=== PATIENT | male | born 1995 | race Caucasian/White ===

== ENCOUNTER 2017-11-15 00:14 | Emergency (ER) | payer SELFPAY ==
--- NOTE | 2017-11-15 01:25 | PDOC ---
History of Present Illness - General History Source: Patient, EMS Exam Limitations: No Limitations - History of Present Illness Initial Comments: 11/15/17 01:38 Patient is a 22 year old male with no pmhx who arrives via EMS for alcohol intoxication. As per EMS, the patients father called the police because he found the patient intoxicated. He was brought in to the ED via EMS that did not use any reversal medication such as Narcan. Patient is awake, alert and ambulating. Patient admits to having a few drinks at the bar and notes that his father called the police. Patient denies any head trauma. <Samanta Miller - Last Filed: 11/15/17 01:38> <Latrice Mota - Last Filed: 11/15/17 02:12> - General Stated Complaint: SUBSTANCE ABUSE Time Seen by Provider: 11/15/17 01:01 Past History <Samanta Miller - Last Filed: 11/15/17 01:38> <Latrice Mota - Last Filed: 11/15/17 02:12> - Past Medical History Allergies/Adverse Reactions: Allergies Allergy/AdvReac Type Severity Reaction Status Date / Time No Known Allergies Allergy Verified 11/15/17 01:29 Review of Systems - Review of Systems Able to Perform ROS?: Yes Comments:: 11/15/17 01:39 CONSTITUTIONAL: Absent: fever, no chills, no fatigue EYES: Absent: visual changes ENT: Absent: ear pain, no sore throat CARDIOVASCULAR: Absent: chest pain, no palpitations RESPIRATORY: Absent: cough, no SOB GI: Absent: abdominal pain, no nausea, no vomiting, no constipation, no diarrhea GENITOURINARY: Absent: dysuria, no frequency, no hematuria MUSCULOSKELETAL: Absent: back pain, no arthralgia, no myalgia SKIN: Absent: rash NEURO: Absent: headache <Samanta Miller - Last Filed: 11/15/17 01:38> *Physical Exam - Vital Signs Last Vital Signs Temp Pulse Resp BP Pulse Ox 98.5 F 65 14 140/62 97 11/15/17 01:30 11/15/17 01:30 11/15/17 01:30 11/15/17 01:30 11/15/17 01:30 - Physical Exam Comments: 11/15/17 01:39 GENERAL: Awake, alert. No apparent distress. HEENT: Normocephalic, atraumatic. PERRL, EOM intact. CARDIOVASCULAR: Normal S1, S2. Regular rate and rhythm. PULMONARY: Clear to auscultation bilaterally. ABDOMEN: Soft, non-distended, non-tender. EXTREMITIES: Normal ROM in all four extremities. No gross deformities. SKIN: Warm, dry. No rash NEUROLOGICAL: No focal neurological deficits. <Samanta Miller - Last Filed: 11/15/17 01:38> Medical Decision Making - Medical Decision Making 11/15/17 01:54 22 yo male who admits that he had been drinking alcohol and that he does use xanax,was BIBA after father called the police -pt is alert x 3, ambulating in the ER -he is not suicidal or homicidal -he is not interested in drug detox or rehab -he is not under arrest - I spoke with there mother (who has terminal lung cancer) and the father -the father wants drug screening but I told home that the pt is not under arrest and does not want drug rehab, pt admits to alcohol and drug use -his mother callled a taxi for him and security placed him in the taxi 11/15/17 02:11 <Latrice Mota - Last Filed: 11/15/17 02:12> *DC/Admit/Observation/Transfer - Attestations Scribe Attestion: 11/15/17 01:39 Documentation prepared by HANNAH Monaco, acting as medical diagnostic radiographer for Latrice Mota MD/DO. <Samanta Miller - Last Filed: 11/15/17 01:38> <Latrice Mota - Last Filed: 11/15/17 02:12> Diagnosis at time of Disposition: Substance abuse - Discharge Dispostion Disposition: HOME Condition at time of disposition: Stable - Patient Instructions Printed Discharge Instructions: DI for Drug Abuse and Drug Addiction Additional Instructions: You should refrain from using illicit drugs Do not drink alcohol to excess There is a drug treatment center at [address] [place] [address] in [place], [place]
[2017-11-15 01:31] VITALS: BP 140/62; PULSE 65; TEMP 98.5; BMI 29.5
== END 2017-11-15 03:03 | disposition home or self-care (01) ==
LOC: JER 00:14
DX: F19.10 Other psychoactive substance abuse, uncomplicated (principal)
CPT/HCPCS: 99281-25